=== PATIENT | female | born 1965 | race Caucasian/White ===

== ENCOUNTER 2016-10-27 20:49 | Emergency (ER) | payer MEDICAID ==
[2016-10-27 21:00] VITALS: BP 174/79
[2016-10-27] MEDS ORDERED: AMOX TR/POTASSIUM CLAVULANATE 875 MG TABLET PO ONE (21:20)
--- OUTSIDE RECORDS SUMMARY | 2016-10-27 21:20 | XMS REPORT | Continuity of Care Document ---
:1965 Author Organization [facility] [place] [address] Care Team Providers Name Role Phone Provider, None Per Patient Primary Care Provider Unavailable Source Comments This disclosure is being made pursuant to the [employer] program and maynot contain all information available regarding this patient.[facility] Active Allergies and Adverse Reactions No Known Allergies Current Medications Be aware that medications may not be up to date as of this document. Alwaysverify current medications with the patient. Prescription Sig. Disp. Refills Start Date End Date Status metFORMIN (GLUCOPHAGE) 500 Take 500 mg by Active MG tablet mouth 2 (two) times daily with meals. insulin glargine (LANTUS) daily. Active 100 UNIT/ML injection - vial FLUoxetine (PROZAC) 20 MG Take 20 mg by Active capsule mouth daily. atorvastatin (LIPITOR) 20 Take 20 mg by Active MG tablet mouth daily. aspirin 81 MG EC tablet Take 81 mg by Active mouth daily. Active Problems Not on file Most Recent Encounters Date Type Specialty Providers Description 08/12/2016 Data Import Immunizations Name Dates Previously Given Next Due INFLUENZA, INACTIVATED, QUADRIVALENT, 3 YEARS AND 06/17/2016 older, single dose syringe/vial Social History Tobacco Use Types Packs/Day Years Used Date Never Assessed Plan of Care Health Maintenance Due Date Last Done Comments Lab-Lipids 1965 LAB-HgA1C 1968 Foot Exam 1973 Hepatitis C Screening 1981 Tetanus/Pertussis (1 - Tdap) 1982 Pap Smear 1984 Colonoscopy 2013 Mammogram 2013 Well Adult Visit 2013 Eye (Ophthalmology) Exam 07/18/2015 07/18/2014, 07/18/2014, 07/18/2014 Influenza Immunization Completed 06/17/2016 Results from Last 3 Months Not on file
--- NOTE | 2016-10-27 21:26 | ERNOTE ---
Time Seen by Provider: 10/27/16 21:11 Stated Complaint: SINUS INFECTION Presenting Symptoms:: sore throat Source: patient Exam Limitations: no limitations Immunizations: IMMUNIZATION HX Immunizations Up to Date Yes History of Influenza Vaccine No Hx Pneumococcal Vaccination No Allergies/Adverse Reactions: Allergies No Known Allergies Allergy (Verified 10/27/16 21:00) Home Medications: HOME MEDICATIONS Amox Tr/Potassium Clavulanate [Augmentin 875-125 Tablet] 875 mg PO Q12H #20 tab 10/27/16 [Last Taken Unknown] Aspirin 81 mg PO 10/27/16 [Last Taken Unknown] Fluticasone Propionate [Flonase] 2 spray NS DAILY #1 inhaler 10/27/16 [Last Taken Unknown] Lantus 24 units SQ HS 10/27/16 [Last Taken Unknown] Metformin HCl [Metformin HCl ER] 500 mg PO BID 10/27/16 [Last Taken Unknown] - History of Present Ilness Narrative: Pt has had sinus pain worsening over the past 10-12 days. slight temp elevation the past 2 days. pain moving back from sinus to ear and neck on the right Timing: getting worse Severity: moderate Frequency/Possible Cause: Reports: occasional episodes Modifying Factors - Improves: Reports: nothing Modifying Factors - Worsens: Reports: lying down Associated Symptoms: Denies: cough, shortness of breath Review of Systems - Review of Systems Constitutional: Absent: fever, chills EYE: Present: no symptoms reported ENT: Present: ear pain - right, nose pain, nose congestion, nasal drainage - green and thick, sore throat - right side Respiratory: Absent: shortness of breath, cough Cardiology: Present: no symptoms reported Gastrointestinal/Abdominal: Present: no symptoms reported Genitourinary: Present: no symptoms reported Musculoskeletal: Present: no symptoms reported Skin: Present: no symptoms reported Neurological: Present: no symptoms reported Endocrine: Present: no symptoms reported Hematologic/Lymphatic: Present: no symptoms reported Psych: Present: no symptoms reported - Patient's Past Medical History Patient History - Medical: No pertinent hx, Arthritis, Diabetes Type 2 Insulin Dependent Patient History - Cardiac/Respiratory: No pertinent hx Patient History - Cancer: No Hx of Cancer Patient History - Surgical Procedures: Tubal Ligation, T & A Patient History - Other: None - Social History Living Situations: home Psych History: No pertinent hx Smoking Status: Former smoker - Immunizations Immunizations Up to Date: Yes Hx Pneumococcal Vaccination: No History of Influenza Vaccine: No Physical Exam - Physical Exam General Appearance: Present: wd/wn, alert, no apparent distress Eye Exam: Normal inspection: bilateral Ears, Nose, Throat: Present: abnormal TM (R) - retracted mildly, nasal congestion - L>R possible polyp or enlarged turbinate with fresh clots on the left, normal pharynx Neck: Present: nontender, lymphadenopathy (R) - minimal Respiratory: Present: no respiratory distress, normal breath sounds, no accessory muscle use, lungs clear Cardiovascular/Chest: Present: regular rate, rhythm, no murmur, normal peripheral pulses Extremity Exam: Present: normal inspection Neurological Exam: Present: alert, oriented, normal mood/affect, no motor/ sensory deficits Skin Exam: Present: normal color, warm/dry ED Progress - Vital Signs Patient's Vital Signs:: I have reviewed the patient's vital signs. Vital Signs: Vital Signs 10/27/16 20:57 Temperature 37.5 C Pulse Rate 98 Respiratory 16 Rate Blood Pressure 174/79 O2 Sat by Pulse 100 Oximetry - Progress/Reassessment Chief Complaint: Upper Respiratory Symptoms Departure - Departure Clinical Impression: Sinusitis Qualifiers: Sinusitis location: maxillary Chronicity: acute Recurrence: non-recurrent Qualified Code(s): J01.00 - Acute maxillary sinusitis, unspecified Disposition: Home self-care Condition: Good Instructions: Sinusitis, Adult, [id number] Referrals: Harshal Crawford MD [Primary Care Provider] - Prescriptions: Amox Tr/Potassium Clavulanate [Augmentin 875-125 Tablet] 875 mg PO Q12H #20 tab Fluticasone Propionate [Flonase] 2 spray NS DAILY #1 inhaler
[2016-10-27] MEDS ORDERED: AMOX TR/POTASSIUM CLAVULANATE 875 MG TABLET ONE (21:29)
== END 2016-10-27 21:34 | disposition home or self-care (01) ==
LOC: ER 20:49
DX: J01.00 Acute maxillary sinusitis, unspecified (principal); E11.9 Type 2 diabetes mellitus without complications; Z79.4 Long term (current) use of insulin

== ENCOUNTER 2017-03-27 00:45 | Emergency (ER) | payer MEDICAID ==
[2017-03-27 01:25] LABS: Hematocrit 39.5 % (37.0-47.0); Hemoglobin 13.6 gm/dL (12.5-16.0); Mean Cell Volume 80.9 fl (78-100); Mean Corpuscular Hemoglobin 27.9 pg (27-31); Mean Corpuscular Hgb Conc 34.4 g/dl (32-36); Mean Platelet Volume 8.8 fl (6.0-9.5); Neutrophil # 4.4 K/mm3 (1.3-6.0); Neutrophil % 50.7 % (42-75.0); Platelet Count 370 K/mm3 (150-450); Red Blood Count 4.88 M/mm3 (4.2-5.4); Red Cell Distribution Width 12.5 % (11.5-14.0); White Blood Count 8.7 K/mm3 (4.0-10.5)
[2017-03-27 01:48] LABS: Albumin * 3.4 gm/dl (3.4-5.0); Anion Gap 12.8 mmol/L (6.8-13.8); BUN/Creatinine Ratio 25.4 (9.0-21.6); Bilirubin, Total 0.4 mg/dL (0.0-1.1); Ca. Corrected For Albumin 9.3 mg/dL (8.4-10.2); Calcium * 9.1 mg/dL (7.9-10.9); Carbon Dioxide 26.9 mmol/L (24-32.6); Potassium 3.7 mmol/L (3.4-4.6)
[2017-03-27 01:58] LABS: Urine Bilirubin Negative (NEGATIVE); Urine Ketone Negative (NEGATIVE); Urine Protein Negative (NEGATIVE); Urine Specific Gravity 1.025 SP.GR. (1.005-1.010); Urine Urobilinogen Normal (NORMAL)
[2017-03-27] MEDS ORDERED: KETOROLAC TROMETHAMINE 30 MG/ML VIAL IM ONE ×2 (02:08→02:11)
[2017-03-27 02:09] LABS: Urine Appearance Slightly Cloudy; Urine Bacteria 4+; Urine Blood 5 /ul (NEGATIVE); Urine Color Yellow; Urine Hyaline Cast 0-5 /LPF; Urine Nitrite Positive (NEGATIVE); Urine RBC 0-5 /hpf (0-5); Urine WBC 0-5 /hpf (0-5)
[2017-03-27] MEDS ORDERED: KETOROLAC TROMETHAMINE 30 MG/ML VIAL ONE (02:09)
--- OUTSIDE RECORDS SUMMARY | 2017-03-27 02:16 | XMS REPORT | Clinical Summary ---
:1965 Author Organization [facility] [place] [address] Care Team Providers Name Role Phone Unavailable Primary Care Provider Unavailable Source Comments This disclosure is being made pursuant to the [employer] program and maynot contain all information available regarding this patient.[facility] Allergies No Known Allergies Current Medications Be aware [...] mouth daily. Active Problems Not on file Immunizations Name Dates Previously Given Next Due INFLUENZA, INACTIVATED, QUADRIVALENT, 3 YEARS AND 06/17/2016 older, single dose syringe/vial Social History Tobacco Use Types Packs/Day Years Used Date Never Assessed Sex Assigned at Date Recorded Not on file Last Filed Vital Signs Not on file Plan of Treatment Health Maintenance Due Date Last Done Comments LAB-LIPIDS 1965 LAB-HgA1C 1968 Foot Exam 1973 Hepatitis C Screening 1981 Tetanus/Pertussis (1 - Tdap) 1982 Pap Smear 1984 Colonoscopy 2013 Mammogram 2013 Well Adult Visit 2013 Eye (Ophthalmology) Exam 07/18/2015 07/18/2014, 07/18/2014 INFLUENZA IMMUNIZATION Completed 06/17/2016 Results Not on filefrom Last 3 Months Insurance Payer Benefit Plan / Subscriber ID Type Phone Address Group [employer] [place] [id number] [place] of [place] [phone] KECIA ANDRADE [employer] Self 1965 Home: [address] [phone] [place] [address]
[2017-03-27] MEDS ORDERED: LEVOFLOXACIN 500 MG TABLET PO ONE (03:30)
[2017-03-27] MEDS ORDERED: LEVOFLOXACIN 500 MG TABLET ONE (03:30)
[2017-03-27 03:37] VITALS: BP 139/69
--- NOTE | 2017-03-27 03:37 | ERNOTE ---
Abdominal HPI - Narrative Date of Service: 03/27/17 - General Chief Complaint: Abdominal Pain Time Seen by Provider: 03/27/17 01:57 - Immun/Allergies/Home Medications Immunizatons: IMMUNIZATION HX Immunizations Up to Date Yes History of Influenza Vaccine No Hx Pneumococcal Vaccination No Allergies/Adverse Reactions: Allergies No Known Allergies Allergy (Verified 10/27/16 21:00) Home Medications: HOME MEDICATIONS Aspirin 81 mg PO 10/27/16 [Last Taken Unknown] Lantus 24 units SQ HS 10/27/16 [Last Taken Unknown] metFORMIN HCL [Metformin HCl ER] 500 mg PO BID 10/27/16 [Last Taken Unknown] Atorvastatin Calcium [Lipitor] 10 mg PO DAILY 03/27/17 [Last Taken Unknown] Levofloxacin [Levaquin] 500 mg PO DAILY #10 tab 03/27/17 [Last Taken Unknown] - History of Present Illness Narrative: Tuesday night approximately 3 days ago started to have right sided abdominal pain and then it started to go to her back this evening. Denies nausea, vomitting and diarrhea. States she had a temp earlier (98.8) but took tylenol around 9pm Timing: getting worse Quality: severe Activities at Onset: other - patient was at work at onset of pain Modifying Factors - (Worsens): Present: movement Associated Symptoms: Absent: nausea, vomiting Prior Abdominal Problems: Present: none - Patient's Past Medical History Patient History - Medical: No pertinent hx, Arthritis, Diabetes Type 2 Insulin Dependent Patient History - Cardiac/Respiratory: No pertinent hx Patient History - Cancer: No Hx of Cancer Patient History - Surgical Procedures: Tubal Ligation, T & A Patient History - Other: None LMP (females 10-50): last week - Social History Living Situations: spouse Psych History: No pertinent hx Smoking Status: Former smoker Have you smoked in the past 12 months: No Do you dip or chew tobacco: No Alcohol Use: none Drug Use: none - Immunizations Immunizations Up to Date: Yes Hx Pneumococcal Vaccination: No History of Influenza Vaccine: No Physical Exam - Physical Exam General Appearance: Present: mild distress Head Exam: Present: normal inspection, no evidence of injury Eye Exam: Normal inspection: bilateral, PERRL: bilateral, EOMI: bilateral Ears, Nose, Throat: Present: normal ENT inspection, normal pharynx Neck: Present: normal inspection, nontender Respiratory: Present: no respiratory distress, normal breath sounds, no accessory muscle use, lungs clear Cardiovascular/Chest: Present: regular rate, rhythm, no murmur, normal peripheral pulses Peripheral Pulses: N=norm/S=strong/W=weak/B=bound/A=absent: Carotid (R): Normal , Carotid (L): Normal Gastrointestinal/Abdominal: Present: normal bowel sounds, soft, tenderness Rectal Exam: Present: deferred Back Exam: Present: normal inspection, normal range of motion, CVA tenderness (R ) Extremity Exam: Present: normal inspection, non-tender, normal range of motion, no edema Neurological Exam: Present: alert, oriented, normal mood/affect Skin Exam: Present: normal color, warm/dry Pelvic Exam: Present: deferred ED Progress - Results and Orders Patient's Lab Results:: I have reviewed the patient's lab results. Results and Orders: Laboratory Tests 03/27/17 03/27/17 03/27/17 01:07 01:25 01:25 WBC 8.7 RBC 4.88 Hgb 13.6 Hct 39.5 MCV 80.9 MCH 27.9 MCHC 34.4 RDW 12.5 Plt Count 370 MPV 8.8 Immature Gran % (Auto) 0.50 H Immature Gran # (Auto) 0.04 H Neutrophils % 50.7 Lymphocytes % 38.4 Monocytes % 8.3 Eosinophils % 1.8 Basophils % 0.3 Nucleated RBC % 0.0 Neutrophils # 4.4 Lymphocytes # 3.3 Monocytes # 0.7 Eosinophils # 0.2 Absolute Basophils 0.0 Sodium 132 Plasma Sodium 136 Potassium 3.7 Chloride 96 L Carbon Dioxide 26.9 Anion Gap 12.8 BUN 18 Creatinine 0.71 Est GFR (Non-Af Amer) 92 BUN/Creatinine Ratio 25.4 H Random Glucose 323 H Calcium 9.1 Calcium Adj for Albumin 9.3 Total Bilirubin 0.4 AST 8 ALT 16 L Alkaline Phosphatase 135 Total Protein 7.0 Albumin 3.4 Amylase 26 Lipase 140 Urine Color Yellow Urine Appearance Slightly cloudy Urine pH 5.0 Ur Specific [place] 1.025 Urine Protein Negative Urine Glucose (UA) >=1000 H Urine Ketones Negative Urine Blood 5 H Urine Nitrate Positive H Urine Bilirubin Negative Urine Urobilinogen Normal Ur Leukocyte Esterase Negative Urine RBC 0-5 Urine WBC 0-5 Ur Epithelial Cells 0-5 Urine Bacteria 4+ H Hyaline Casts 0-5 H Urine Culture Comments Culture to follow - Vital Signs Vital Signs: Vital Signs 03/27/17 03/27/17 01:01 02:17 Temperature 36.3 C L 36.5 C Pulse Rate 82 70 Respiratory 82 H 14 Rate Blood Pressure 142/72 116/60 O2 Sat by Pulse 99 97 Oximetry - Progress/Reassessment Chief Complaint: Abdominal Pain Progress:: Improved Plan - Plan Plan: Patient stable for discharged Departure - Departure Clinical Impression: Acute cystitis with hematuria Hyperglycemia due to type 2 diabetes mellitus Qualifiers: Diabetes mellitus rodent exterminator insulin use: with rodent exterminator use Qualified Code(s): E11.65 - Type 2 diabetes mellitus with hyperglycemia Disposition: Home self-care Condition: Good Instructions: Urinary Tract Infection, Adult, [id number] Prescriptions: Levofloxacin [Levaquin] 500 mg PO DAILY #10 tab
== END 2017-03-27 03:36 | disposition home or self-care (01) ==
LOC: ER 00:45
DX: N30.01 Acute cystitis with hematuria (principal); E11.65 Type 2 diabetes mellitus with hyperglycemia; Z87.891 Personal history of nicotine dependence